=== PATIENT | female | born 1965 | race African-American/Black ===

== ENCOUNTER 2019-10-11 14:57 | Emergency (ER) | payer OTHER ==
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
[2019-10-11 16:54] LABS: ABS Eosinophils 0.1 10^3/ul (0-0.6); ABS Lymphocytes 1.7 10^3/ul (1.0-4.8); ABS Monocytes 0.4 10^3/ul (0-0.8); ABS Neutrophils 2.9 10^3/ul (1.5-7.7); Eosinophil % 1.9 %; Hematocrit 44 % (35-47); Hemoglobin 14.9 g/dL (12.0-16.0); Lymphocyte % 33.3 %; Mean Corpuscular HGB Conc 34 g/dL (31-36); Mean Corpuscular Hemoglobin 26 pg (27-31); Mean Corpuscular Volume 77 fL (80-97); Mean Platelet Volume 7.6 fL (7.4-10.4); Nucleated Red Blood Cells % 0.5; Platelet Count 256 10^3/uL (150-450); Red Blood Count 5.71 10^6 /uL (3.70-4.87); Red Cell Distribution Width 15 % (10-15); White Blood Count 5.2 10^3/uL (3.5-10.8)
[2019-10-11 17:05] LABS: Albumin 4.1 g/dL (3.2-5.2); Potassium 3.6 mmol/L (3.5-5.0); Total Bilirubin 0.5 mg/dL (0.2-1.0)
[2019-10-11 17:11] LABS: INR 1.01 (0.82-1.09)
[2019-10-11 17:11] LABS: BUN/Creatinine Ratio 17.6 (8-20); EGFR African American 99.3 (>60); EGFR Non-African American 82.1 (>60); Total Protein 8.1 g/dL (6.4-8.9)
[2019-10-11] MEDS ORDERED: Acetaminophen TAB* 325 MG PO ONE (18:13)
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
[2019-10-11] MEDS ORDERED: Ketorolac INJ* 30 MG/ML 1 ML VIAL IV ONE (18:38)
[2019-10-11 19:02] VITALS: BP 158/74
== END 2019-10-11 19:00 | disposition home or self-care (01) ==
LOC: ED 14:57
DX: G93.2 Benign intracranial hypertension (principal); J45.909 Unspecified asthma, uncomplicated; Z98.51 Tubal ligation status; Z79.899 Other long term (current) drug therapy; Z88.1 Allergy status to other antibiotic agents; Z88.0 Allergy status to penicillin; Z88.8 Allergy status to other drugs, medicaments and biological substances
CPT/HCPCS: 36415; 80053; 85025; 85610; 96374; 99282; A9270-GY; J1885